=== PATIENT | male | born 1985 | race Caucasian/White ===

== ENCOUNTER 2017-03-24 20:40 | Emergency (ER) | payer SELFPAY ==
[~2017-03-24] VITALS: Ht 177.8 cm; Wt 100.2 kg
[2017-03-24 20:55] VITALS: BP 204/141
[2017-03-24 22:06] LABS: Albumin 3.8 g/dL (3.4-5.0); Calcium 7.8 mg/dL (8.5-10.1); Chloride 109 mmol/L (98-107); Potassium 3.4 mmol/L (3.5-5.1); Sodium 142 mmol/L (136-145)
[2017-03-24 22:09] LABS: Acetaminophen < 2.0 ug/mL (10-30); Anion Gap 7 (5-15); Aspartate Aminotransferase 24 U/L (15-37); BUN/Creatinine Ratio 12.5; Blood Urea Nitrogen 11 mg/dL (7-18); Carbon Dioxide 26 mmol/L (21-32); GFR African American 129 mL/min; GFR Non-African American 107 mL/min; Glucose 109 mg/dL (74-106); Salicylate < 1.7 mg/dL (2.8-20.0)
[2017-03-24 22:11] LABS: Alkaline Phosphatase 88 U/L (45-117); Bilirubin, Total 0.4 mg/dL (0.2-1.0); Total Protein 7.2 g/dL (6.4-8.2)
[2017-03-24 22:28] LABS: Basophils # (auto) 0 uL; Basophils % (auto) 0.1 % (0.0-2.0); CONDITION Y; Eosinophils # (auto) 0.2 uL; Eosinophils % (auto) 1.3 % (0.0-7.0); Hemoglobin 14.5 g/dL (13.5-17.5); Lymphocytes # (auto) 1.2 uL; Lymphocytes % (auto) 8.3 % (10.0-50.0); Mean Corpuscular Hemoglobin 29.8 pg (28.0-32.0); Mean Corpuscular Hgb Conc. 33.8 g/dL (32.0-36.0); Mean Corpuscular Volume 88.2 fL (80.0-100.0); Mean Platelet Volume 7.9 fL (7.4-10.4); Monocytes # (auto) 0.7 uL; Monocytes % (auto) 5.2 % (0.0-12.0); Neutrophils % (auto) 85.1 % (37.0-80.0); Platelet Count (auto) 318 10^3/uL (140-450); Red Cell Distribution Width 12.8 % (11.6-16.0); White Blood Cell 14.1 10^3/uL (4.4-10.8)
== END 2017-03-24 22:31 | disposition left against medical advice (07) ==
LOC: EDBD 20:40 → ER 20:51
DX: T65.91XA Toxic effect of unspecified substance, accidental (unintentional), initial encounter (principal); Z53.21 Procedure and treatment not carried out due to patient leaving prior to being seen by health care provider
CPT/HCPCS: 36415; 80053; 80320; 80329; 85025

== ENCOUNTER 2017-12-11 19:42 | Emergency (ER) | payer SELFPAY ==
[~2017-12-11] VITALS: Ht 182.9 cm; Wt 90.7 kg
[2017-12-11] MEDS ORDERED: EPINEPHrine HCL 1 MG/10 ML SYRG IV ONE (19:43)
[2017-12-11] MEDS ORDERED: SODIUM BICARBONATE 8.4% INJ 50ML SYRINGE IV ONE (19:43)
[2017-12-11] MEDS ORDERED: DEXTROSE (50%) 50ML SYRG IV ONE (19:43)
[2017-12-11] MEDS ORDERED: CALCIUM CHLOR(10%) 100MG/ML 10ML SYRINGE IV ONE (19:43)
[2017-12-11 19:45] VITALS: BP 84/51
== END 2017-12-11 20:40 | disposition expired ==
LOC: EDBD 19:42 → ER 19:42
DX: I46.9 Cardiac arrest, cause unspecified (principal)
CPT/HCPCS: 31500; 92950; 99285; J0171; J7042